=== PATIENT | male | born 1990 | race African-American/Black ===

== ENCOUNTER 2022-01-07 16:26 | Observation (INO) | payer OTHER ==
[2022-01-07 17:07] VITALS: BMI 21.1
[2022-01-07] MEDS ORDERED: FOLIC ACID INJECTION - 1 MG, THIAMINE HCL 100 MG, MULTIVIT INJECTION ADULT 10 ML in SOD... IVPB ONE (17:35)
[2022-01-07] MEDS ORDERED: LACTATED RINGERS SOLUTION 1000 ML INFUS.BAG IV ONE (17:35)
[2022-01-07 18:07] LABS: BASO % 0.9 % (0-2.0); EOS % 0.1 % (0-4.5); HEMATOCRIT 38.4 % (35.4-49); HEMOGLOBIN 13.3 GM/dL (11.7-16.9); LYMPH % 38.8 % (8-40); MCH 29.8 pg (25.7-33.7); MCHC 34.7 g/dl (32.0-35.9); MEAN CELL VOLUME 85.8 fl (80-96); MONO % 9.7 % (3.8-10.2); NEUT % 50.5 % (42.8-82.8); PLATELET COUNT 103 10^3/uL (134-434); RBC 4.47 M/mm3 (4.00-5.60); RDW 14.4 % (11.9-15.9); WHITE BLOOD COUNT 3.2 K/mm3 (4.0-10.0)
[2022-01-07 18:29] LABS: CHLORIDE 102 mmol/L (98-107); SODIUM 140 mmol/L (136-145)
[2022-01-07 18:32] LABS: ALBUMIN 4.6 g/dl (3.4-5.0); CALCIUM 8.2 mg/dL (8.5-10.1); CO2 29 mmol/L (21-32); GLUCOSE,RANDOM 96 mg/dL (74-106)
[2022-01-07 18:35] LABS: CREATININE 0.8 mg/dL (0.55-1.3); PHOSPHOROUS 4.4 mg/dL (2.5-4.9); SGOT/AST 76 U/L (15-37); SGPT/ALT 39 U/L (13-61)
[2022-01-07 18:37] LABS: BILIRUBIN,TOTAL 0.6 mg/dL (0.2-1); TOT PROT 8.8 g/dl (6.4-8.2)
[2022-01-07 18:38] LABS: ALK PHOS 126 U/L (45-117)
[2022-01-07 18:44] LABS: ANION GAP 9 MMOL/L (8-16)
[2022-01-07] MEDS ORDERED: chlordiazePOXIDE HCL 25 MG CAPSULE PO ONE (20:12)
[2022-01-07] MEDS ORDERED: KCL 10 MEQ IVPB 30 MEQ/300 ML INFUS.BAG IVPB ONE (20:51)
[2022-01-07] MEDS ORDERED: chlordiazePOXIDE HCL 25 MG CAPSULE ONE (20:51)
[2022-01-07] MEDS: KCL 10 MEQ IVPB 10 MEQ/100 ML INFUS.BAG IVPB SCH ×3 (21:06→23:16)
[2022-01-07 21:17] LABS: EPI CELLS 1 /uL (0-25.1); HYALINE CASTS 0 /uL (0-3.1); PH,URINE 6.5 (5.0-8.0); URINE APPEARANCE CLEAR; URINE BACTERIA 28 /uL (0-1359); URINE BILIRUBIN NEGATIVE (NEGATIVE); URINE COLOR YELLOW; URINE GLUCOSE (UA) NEGATIVE (NEGATIVE); URINE KETONE NEGATIVE (NEGATIVE); URINE LEUK ESTERASE NEGATIVE (NEGATIVE); URINE NITRITE NEGATIVE (NEGATIVE); URINE PROTEIN 1+ (NEGATIVE); URINE RBC 5 /uL (0-23.9); URINE WBC 1 /uL (0-25.8)
[2022-01-07 21:23] LABS: METHADONE, UR NEGATIVE (NEGATIVE); PHENCYCLIDINE,URINE NEGATIVE (NEGATIVE); URINE BARBITURATES NEGATIVE (NEGATIVE); URINE BENZODIAZEPINES NEGATIVE (NEGATIVE)
[2022-01-07 21:24] LABS: COCAINE, UR NEGATIVE (NEGATIVE); OPIATES, URI NEGATIVE (NEGATIVE)
[2022-01-07 21:25] LABS: URINE AMPHETAMINES NEGATIVE (NEGATIVE)
[2022-01-07] MEDS ORDERED: POTASSIUM CHLORIDE ORAL LIQUID 20 MEQ/15 ML PO SCH (22:15)
[2022-01-07] MEDS ORDERED: POTASSIUM CHLORIDE ORAL LIQUID 20 MEQ/15 ML PO ONE (22:17)
[2022-01-07] MEDS ORDERED: KCL 10 MEQ IVPB 20 MEQ/200 ML INFUS.BAG IVPB ONE (22:43)
[2022-01-07] MEDS ORDERED: POTASSIUM CHLORIDE ORAL LIQUID 20 MEQ/15 ML ONE (22:43)
[2022-01-07 22:58] VITALS: BP 155/109; PULSE 106
[2022-01-08] MEDS: KCL 10 MEQ IVPB 10 MEQ/100 ML INFUS.BAG IVPB SCH ×2 (01:16→02:44)
[2022-01-08 01:48] LABS: BLOOD UREA NITROGEN 4.2 mg/dL (7-18); CALCIUM 8.1 mg/dL (8.5-10.1)
[2022-01-08 01:52] LABS: CREATININE 0.7 mg/dL (0.55-1.3)
[2022-01-08] MEDS ORDERED: LORazepam 1 MG TABLET PO PRN (03:14)
[2022-01-08] MEDS ORDERED: LORazepam 1 MG TABLET PO SCH (05:00)
[2022-01-08] MEDS ORDERED: POTASSIUM CHLORIDE ORAL LIQUID 20 MEQ/15 ML PO SCH (10:00)
[2022-01-08] MEDS ORDERED: ENOXAPARIN NA (PORCINE) 40 MG/0.4 ML DISP.SYRIN SQ SCH (10:00)
[2022-01-08] MEDS ORDERED: MULTIVITAMINS (DAILY MVI) TABLET (FP) PO SCH (10:00)
[2022-01-08] MEDS ORDERED: FOLIC ACID 1 MG TABLET (FP) PO SCH (10:00)
[2022-01-08] MEDS ORDERED: THIAMINE HCL 100 MG TABLET (FP) PO SCH (10:00)
[2022-01-08 13:07] LABS: SARS-CoV-2 NAA Not Detected (Not Detected)
[2022-01-09] MEDS ORDERED: LORazepam 1 MG TABLET PO SCH (05:00)
[2022-01-10] MEDS ORDERED: LORazepam 0.5 MG TABLET PO PRN
[2022-01-10] MEDS ORDERED: LORazepam 0.5 MG TABLET PO SCH (05:00)
[2022-01-11] MEDS ORDERED: LORazepam 0.5 MG TABLET PO ONE (05:00)
== END 2022-01-08 03:57 | disposition left against medical advice (07) ==
LOC: JER 16:26 → JERBED 18:48
PROVIDERS: ADMIT Hospitalist; ATTEND Hospitalist
PROC: 3E033GC Introduction of Other Therapeutic Substance into Peripheral Vein, Percutaneous Approach (ICD-10-PCS; principal; 2022-01-07)
PROC: 3E0337Z Introduction of Electrolytic and Water Balance Substance into Peripheral Vein, Percutaneous Approach (ICD-10-PCS; 2022-01-07)
DX: F10.129 Alcohol abuse with intoxication, unspecified (principal); E87.6 Hypokalemia; H53.9 Unspecified visual disturbance; Z29.9 Encounter for prophylactic measures, unspecified
CPT/HCPCS: 36415; 71046-TC-FY; 80048; 80053; 80307; 81003; 82962; 83735; 84100; 85025; 87086; 93005; 93010; 96361; 96365; 96366; 99285-25; C9803-CS; G0378; U0003; U0005